=== PATIENT | male | born 1995 | race Two or more races ===

== ENCOUNTER 2024-03-06 16:38 | Emergency (ER) | payer OTHER ==
[2024-03-06 16:50] VITALS: RESP 20; TEMP 98.3
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
--- NOTE | 2024-03-06 17:57 | XR ---
EXAMINATION TYPE: XR wrist complete LT DATE OF EXAM: 03/06/2024 5:13 PM CLINICAL INDICATION:Male, 28 years old with history of deformity; [facility] COMPARISON: None TECHNIQUE: XR wrist complete LT; examined in the Frontal, navicular, lateral, and oblique. FINDINGS/IMPRESSION: * Acute comminuted distal radius fracture with displacement. There is dorsal angulations with large fragment noted deviated ulnarly. * Suspected avulsion fracture of the ulnar styloid process.
--- NOTE | 2024-03-06 20:10 | XR ---
EXAMINATION TYPE: XR wrist limited LT DATE OF EXAM: 03/06/2024 8:02 PM CLINICAL INDICATION:Male, 28 years old with history of left wrist s/p reduction; [facility] COMPARISON: Prereduction TECHNIQUE: XR wrist limited LT; examined in the Frontal, navicular, lateral, and oblique. FINDINGS/IMPRESSION: Improved anatomic alignment of the fracture fragments with persistent comminuted intra-articular dist al radius fracture and radial ulnar styloid process fracture.
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
[2024-03-06] MEDS: ACET/COD 300 MG/30 MG STARTER PACK 6 TAB BTL PO STA (22:29)
[2024-03-06 22:34] VITALS: BP 127/71; PULSE 70
== END 2024-03-06 22:52 | disposition home or self-care (01) ==
LOC: EDBD → EC 16:38
DX: S52.202A Unspecified fracture of shaft of left ulna, initial encounter for closed fracture (principal); S52.572A Other intraarticular fracture of lower end of left radius, initial encounter for closed fracture; S52.592A Other fractures of lower end of left radius, initial encounter for closed fracture; S52.612A Displaced fracture of left ulna styloid process, initial encounter for closed fracture; W01.0XXA Fall on same level from slipping, tripping and stumbling without subsequent striking against object, initial encounter
CPT/HCPCS: 29125; 99284